=== PATIENT | female | born 1995 | race Caucasian/White ===

== ENCOUNTER 2019-05-20 13:50 | Outpatient (CLI) | payer SELFPAY ==
[2019-05-20 14:58] LABS: Bacteria,Urine 4+ /HPF (Negative); Bilirubin,Urine NEG (Negative); Blood,Urine SM (Negative); Color,Urine Straw (Yellow); Protein,Urine <15 mg/dL mg/dL (Negative); Urobilinogen,Urine < 2.0 mg/dL (<2.0)
[2019-05-20 14:59] LABS: Hematocrit 40.8 % (30.3-42.9); Mean Corpuscular HGB Conc 34 % (30-34); Mean Corpuscular Volume 82 fl (79-97); Platelet Count 227 K/mm3 (140-440); Red Cell Distribution Width 16.4 % (13.2-15.2)
[2019-05-20 15:16] LABS: Alanine Aminotransferase 16 units/L (7-56); Uric Acid 6.1 mg/dL (3.5-7.6)
[2019-05-20 16:15] VITALS: BP 105/64
== END 2019-05-20 16:32 | disposition home or self-care (01) ==
LOC: TRG 13:50
PROVIDERS: ATTEND Obstetrics & Gynecology
DX: O47.1 False labor at or after 37 completed weeks of gestation (principal); Z3A.40 40 weeks gestation of pregnancy
CPT/HCPCS: 36415; 59025; 81001; 82565; 83615; 84450; 84460; 84550; 85027; 87086

== ENCOUNTER 2019-05-26 12:08 | Inpatient (IN) | payer MEDICAID, OTHER ==
[2019-05-26] MEDS ORDERED: TERBUTALINE 1 MG/1 ML INJ IVP PRN (13:32)
[2019-05-26] MEDS ORDERED: LIDOCAINE (2%) 20 MG/1 ML VIAL 20 ML MDV INFILTRATI ONE (13:32)
[2019-05-26] MEDS ORDERED: miSOPROStol 25 MCG TAB VG ONE (13:32)
[2019-05-26] MEDS ORDERED: TERBUTALINE 1 MG/1 ML INJ SUB-Q PRN (13:32)
[2019-05-26] MEDS ORDERED: MINERAL OIL 30 ML ORAL LIQD PO PRN (13:32)
[2019-05-26] MEDS ORDERED: ePHEDrine SULFATE 50 MG/1 ML INJ IV PRN (13:32)
[2019-05-26] MEDS ORDERED: NALOXONE 0.4 MG/1 ML INJ IV PRN (13:32)
[2019-05-26] MEDS ORDERED: BUTORPHANOL 2 MG/1 ML INJ IV PRN (13:32)
--- NOTE | 2019-05-26 13:46 | History and Physical Report ---
History of Present Illness Date of examination: 05/26/19 Date of admission: 05/26/2019 Chief complaint: Patient sent from office with elevated blood pressures (156/106; 170/90). Patient denies HAs, visual changes, and N&V. Admits to pedal edema. History of present illness: Early entry to care at [facility], course complicated by a abnormal 1hour GTT followed by a normal 3hour GTT. The Third trimester has been complicated by elevated blood pressures. Past History Past Medical History: no pertinent history Past Surgical History: no surgical history Family/Genetic History: diabetes (father and mother), hypertension (father), cancer (Aunt: Breast and Uterine) Social history: no significant social history, - Obstetrical History Expected Date of Delivery: 05/16/19 Actual Gestation: 41 Week(s) 3 Day(s) : 1 Medications and Allergies Allergies Allergy/AdvReac Type Severity Reaction Status Date / Time No Known Allergies Allergy Verified 05/20/19 14:19 Active Meds: Active Medications Butorphanol Tartrate (Stadol) 2 mg IV Q2H PRN PRN Reason: Pain , Severe (7-10) Ephedrine Sulfate (Ephedrine Sulfate) 10 mg IV Q2M PRN PRN Reason: Hypotension Oxytocin/Sodium Chloride (Pitocin/Ns 20 Unit/1000ml Drip) 20 units in 1,000 mls @ 125 mls/hr IV DIRECT ANDRESSA Lactated Ringer's (Lactated Ringers) 1,000 mls @ 125 mls/hr IV DIRECT ANDRESSA Lidocaine (Xylocaine 2%) 20 ml INFILTRATI ONCE ONE Stop: 05/26/19 13:33 Mineral Oil (Mineral Oil) 30 ml PO QHS PRN PRN Reason: Constipation Misoprostol (Cytotec) 25 mcg VAGINAL ONCE ONE Stop: 05/26/19 13:33 Naloxone HCl (Naloxone) 0.1 mg IV Q2MIN PRN PRN Reason: Res Rate </= 8 or 02 SAT < 92% Ondansetron HCl (Zofran) 4 mg IV Q8H PRN PRN Reason: Nausea And Vomiting Terbutaline Sulfate (Brethine) 0.25 mg SUB-Q ONCE PRN PRN Reason: Hyperstimulation/Hypertonicity Terbutaline Sulfate (Brethine) 0.25 mg IVP ONCE PRN PRN Reason: Hyperstimulation/Hypertonicity Review of Systems All systems: negative - Vital Signs Vital signs: Vital Signs Pulse Pulse Ox 105 H 98 05/26/19 12:26 05/26/19 12:26 Temp Pulse Resp BP Pulse Ox 94 H 151/95 96 05/26/19 13:36 05/26/19 13:32 05/26/19 13:36 - Physical Exam Breasts: Positive: normal Cardiovascular: Regular rate Lungs: Positive: Clear to auscultation, Normal air movement Abdomen: Positive: normal appearance, soft, normal bowel sounds Genitourinary (Female): Positive: normal external genitalia, normal perenium Uterus: Positive: enlarged Extremities: Positive: edema (+1) - Obstetrical FHR: category 1 Uterine Contraction Monitor Mode: External Cervical Dilatation: 3 (Vtx, Intact) Cervical Effacement Percentage: 40 station: -3 Uterine Contraction Pattern: Absent Uterine Tone Measurement Phase: Resting Results All other labs normal. Assessment and Plan A: IUP @ 41 3/7 Weeks Category I Tracing Elevated Blood Pressure Maternal Obesity GBS Negative P: Admit to L&D per Routine Orders Cytotec Induction PIH Labs
[2019-05-26] MEDS ORDERED: OXYTOCIN 20 UNIT/1000ML DRIP 20 UNITS/1,000 ML BAG IV SCH (14:00)
[2019-05-26 14:36] LABS: Hematocrit 39.9 % (30.3-42.9); Hemoglobin 13.4 gm/dl (10.1-14.3); Mean Corpuscular HGB Conc 34 % (30-34); Mean Corpuscular Volume 82 fl (79-97); Platelet Count 216 K/mm3 (140-440); Red Blood Count 4.84 M/mm3 (3.65-5.03); Red Cell Distribution Width 16.1 % (13.2-15.2)
[2019-05-26 15:05] LABS: Alanine Aminotransferase 13 units/L (7-56); Uric Acid 6.5 mg/dL (3.5-7.6)
[2019-05-26] MEDS ORDERED: FLU VACC QUAD 2019-20 (3 YR UP)/PF 60 MCG/0.5 ML SYRINGE IM ONE (15:38)
[2019-05-26] MEDS ORDERED: OXYTOCIN DRIP 30,000 MILLIUNITS/500 ML BAG IV ONE (15:45)
[2019-05-26] MEDS: LACTATED RINGERS 1,000 ML IV SCH ×3 (16:00→22:10)
--- NOTE | 2019-05-26 16:03 | Progress Note ---
Assessment and Plan A: IUP @ 41 3/7 Weeks Category I Tracing Maternal Obesity GBS Negative P: AROM Internals X 2 Pitocin Induction Subjective - Subjective Date of service: 05/26/19 Interval history: Early entry to care at [facility], course complicated by a abnormal 1hour GTT followed by a normal 3hour GTT. The Third trimester has been complicated by elevated blood pressures. Patient reports: movement normal Objective - Vital Signs Vital Signs: Vital Signs - 12hr 05/26/19 05/26/19 05/26/19 12:26 12:31 12:36 Temperature 98.8 F Pulse Rate 105 H 104 H 105 H Blood Pressure 138/86 O2 Sat by Pulse 98 97 98 Oximetry 05/26/19 05/26/19 05/26/19 12:41 12:46 12:51 Temperature Pulse Rate 106 H 103 H 98 H Blood Pressure 138/85 O2 Sat by Pulse 98 96 98 Oximetry 05/26/19 05/26/19 05/26/19 12:56 13:01 13:06 Temperature Pulse Rate 98 H 104 H 96 H Blood Pressure 119/68 O2 Sat by Pulse 98 98 97 Oximetry 05/26/19 05/26/19 05/26/19 13:11 13:16 13:21 Temperature Pulse Rate 87 96 H 92 H Blood Pressure 126/76 O2 Sat by Pulse 97 98 97 Oximetry 05/26/19 05/26/19 05/26/19 13:26 13:31 13:32 Temperature Pulse Rate 100 H 93 H 101 H Blood Pressure 151/95 O2 Sat by Pulse 97 97 Oximetry 05/26/19 05/26/19 05/26/19 13:36 13:41 13:46 Temperature Pulse Rate 94 H 91 H 96 H Blood Pressure O2 Sat by Pulse 96 96 97 Oximetry 05/26/19 05/26/19 05/26/19 13:47 13:51 13:56 Temperature Pulse Rate 95 H 91 H 87 Blood Pressure 136/81 O2 Sat by Pulse 94 97 98 Oximetry 05/26/19 05/26/19 05/26/19 14:01 14:02 14:06 Temperature Pulse Rate 91 H 88 94 H Blood Pressure 134/87 O2 Sat by Pulse 97 96 Oximetry 05/26/19 05/26/19 05/26/19 14:11 14:16 14:21 Temperature Pulse Rate 92 H 87 91 H Blood Pressure 117/65 O2 Sat by Pulse 97 97 97 Oximetry 05/26/19 05/26/19 05/26/19 14:26 14:31 14:36 Temperature Pulse Rate 85 95 H 96 H Blood Pressure O2 Sat by Pulse 98 97 97 Oximetry 05/26/19 05/26/19 05/26/19 14:41 14:47 14:50 Temperature Pulse Rate 92 H 93 H 93 H Blood Pressure 123/67 O2 Sat by Pulse 92 95 Oximetry 05/26/19 05/26/19 05/26/19 14:55 15:00 15:05 Temperature Pulse Rate 89 87 87 Blood Pressure O2 Sat by Pulse 98 98 98 Oximetry 05/26/19 05/26/19 05/26/19 15:10 15:15 15:18 Temperature Pulse Rate 88 88 87 Blood Pressure 117/67 O2 Sat by Pulse 97 97 Oximetry 05/26/19 05/26/19 05/26/19 15:20 15:25 15:30 Temperature Pulse Rate 95 H 95 H 96 H Blood Pressure O2 Sat by Pulse 97 96 97 Oximetry 05/26/19 05/26/19 05/26/19 15:35 15:39 15:40 Temperature 97.9 F Pulse Rate 92 H 90 Blood Pressure O2 Sat by Pulse 98 97 Oximetry 05/26/19 05/26/19 05/26/19 15:45 15:47 15:50 Temperature Pulse Rate 89 94 H 86 Blood Pressure 139/86 O2 Sat by Pulse 97 94 98 Oximetry - Exam Breasts: normal Cardiovascular: Regular rate Lungs: Clear to auscultation, Normal air movement Abdomen: Present: normal appearance, soft, normal bowel sounds FHR: category 1 FHR comments: Spontaneous decelerations noted earlier; have resolved. Uterine Contraction Monitor Mode: Internal Cervical Dilatation: 3 (No fluid return upon AROM @ 1600) Cervical Effacement Percentage: 70 station: -2 Uterine Contraction Pattern: Irregular Uterine Tone Measurement Phase: Resting Uterine Contraction Intensity: Mild Extremities: normal - Labs Labs: Abnormal Labs 05/26/19 05/26/19 13:59 13:59 RDW 16.1 H Creatinine 0.5 L Lactate Dehydrogenase 221 H Laboratory Results - last 24 hr 05/26/19 05/26/19 05/26/19 13:59 13:59 13:59 WBC 7.7 RBC 4.84 Hgb 13.4 Hct 39.9 MCV 82 MCH 28 MCHC 34 RDW 16.1 H Plt Count 216 Creatinine 0.5 L Estimated GFR > 60 Uric Acid 6.5 AST 22 ALT 13 Lactate Dehydrogenase 221 H Blood Type O POSITIVE Antibody Screen Negative
[2019-05-26] MEDS ORDERED: OXYTOCIN DRIP 30 UNITS/500 ML BAG IV SCH (17:00)
[2019-05-26] MEDS: ONDANSETRON 4 MG/2 ML INJ IV PRN (20:34)
[2019-05-26] MEDS: SODIUM CHLORIDE 0.9% 1000 ML 1,000 ML VG SCH (22:42)
--- NOTE | 2019-05-27 | Event Note ---
Date: 05/26/19 Called to see pt to assess FHT. RN was concerned due to a isolated late decel the pt had earlier while on pit. Pit has been stopped for > 2 hrs now. Occasional early decels noted. Currently, FHT is 120s, reactive with good BTBV and no significant decels. Pt is also still manoj every 2 minutes without pitocin. RN exam also is noting cervical change as she is now 6 cm. Pt also has FSE and had amnioinfusion Plan- FHT is currently reassuring and pt has changed cervix and is still manoj. As a result, will continue expectant care. As long as pt is still having regular contractions, will not add pitocin.
[2019-05-27] MEDS: SODIUM CHLORIDE 0.9% 1000 ML 1,000 ML VG SCH (02:21)
[2019-05-27] MEDS: LACTATED RINGERS 1,000 ML IV SCH ×2 (02:22→11:24)
[2019-05-27] MEDS ORDERED: fentaNYL 100 MCG/2 ML INJ IV PRN (02:36)
[2019-05-27] MEDS: ONDANSETRON 4 MG/2 ML INJ IV PRN (06:38)
[2019-05-27] MEDS ORDERED: NALOXONE 2 MG/2 ML INJ IV PRN (06:50)
[2019-05-27] MEDS ORDERED: ePHEDrine SULFATE 50 MG/1 ML INJ IV PRN (06:50)
--- NOTE | 2019-05-27 06:50 | Anesthesia Consultation ---
Anesthesia Consult and Med Hx Date of service: 05/27/19 - Airway Anesthetic Teeth Evaluation: Good ROM Head & Neck: Adequate Mental/Hyoid Distance: Adequate Mallampati Class: Class II Intubation Access Assessment: Good - Pulmonary Exam CTA: Yes - Cardiac Exam Cardiac Exam: RRR - Pre-Operative Health Status ASA Pre-Surgery Classification: ASA2, Emergency Proposed Anesthetic Plan: Epidural - Pulmonary Hx Asthma: No - Cardiovascular System Hx Hypertension: Yes - Central Nervous System Hx Seizures: No Hx Psychiatric Problems: No - Endocrine Hx Renal Disease: No Hx Hypothyroidism: No Hx Hyperthyroidism: No - Hematic Hx Anemia: No Hx Sickle Cell Disease: No - Other Systems Hx Alcohol Use: No Hx Obesity: Yes
[2019-05-27] MEDS ORDERED: fentaNYL-BUPIV 2 MCG/ML-0.125% 200 MCG/100 ML BAG EPIDURAL SCH ×2 (07:00→11:00)
--- NOTE | 2019-05-27 07:09 | Event Note ---
Date: 05/27/19 PT is getting very uncomfortable with the pain and is awaiting epidural. FHT- 150s, reactive, good BTBV. PT was having repetitve early decels which has recently resolved. [place]- around q 2-3 min, there are some 10 min stretches where MVUs are adequate, occasionally they are not. VE- 7cm (maybe stetchy to 8), 80%/-1. A/P- cervical dilation is progressing, although slowly. Will await epidural and sees if controlling her pain will improve her dilation. Contractions are still regular and mostly adequate at this time so continue to hold on pit.
[2019-05-27] MEDS ORDERED: BUPIVACAINE/PF (0.25%) 2.5 MG/ML 10 ML VIAL INFILTRATI ONE (07:34)
[2019-05-27] MEDS ORDERED: ceFAZolin/Water 2 GM/20 ML 2 GM/20 ML SYRINGE IV NR (09:00)
[2019-05-27] MEDS ORDERED: FAMOTIDINE 20 MG/2 ML INJ IV NR (09:00)
[2019-05-27] MEDS ORDERED: BICITRA ORAL LIQD 30ML PO NR (09:00)
[2019-05-27] MEDS ORDERED: OXYTOCIN 20 UNIT/1000ML DRIP 20 UNITS/1,000 ML BAG IV SCH ×2 (09:00→11:00)
[2019-05-27] MEDS ORDERED: METOCLOPRAMIDE 10 MG/2 ML INJ IV NR (09:00)
[2019-05-27] MEDS ORDERED: LACTATED RINGERS 1,000 ML IV SCH ×2 (09:00→17:29)
[2019-05-27] MEDS ORDERED: WATER FOR IRRIG STERILE 1,500 ML BOTTLE IR ONE (09:16)
[2019-05-27] MEDS ORDERED: SODIUM CHLORIDE 0.9% IRR 1,500 ML BOTTLE IR ONE (09:16)
[2019-05-27] MEDS ORDERED: LIDOCAINE (2%) 20 MG/1 ML VIAL 20 ML MDV INFILTRATI ONE (09:17)
[2019-05-27] MEDS ORDERED: LIDOCAINE 2%/EPINEPHRINE 1:200,000 VIAL (20 ML) INFILTRATI ONE (09:18)
--- NOTE | 2019-05-27 09:23 | Event Note ---
Date: 05/27/19 Decelerations are continuing, Variability is excellent but time to vaginal delivery uncertain. Options posed to patient and she chose a delivery. Plan: for delivery.
[2019-05-27] MEDS ORDERED: ONDANSETRON 4 MG/2 ML INJ ONE ×2 (10:04→10:37)
[2019-05-27] MEDS ORDERED: PHENYLEPHRINE/NS 1,000 MCG/10 ML SYRINGE (OR USE) IV ONE ×2 (10:10→10:37)
[2019-05-27] MEDS ORDERED: HYDROmorphone 1 MG/1 ML INJ IV PRN ×2 (10:22)
[2019-05-27] MEDS ORDERED: NALOXONE 0.4 MG/1 ML INJ IV PRN ×2 (10:22→10:44)
[2019-05-27] MEDS ORDERED: ONDANSETRON 4 MG/2 ML INJ IV PRN ×2 (10:22→10:44)
[2019-05-27] MEDS ORDERED: PROMETHAZINE 25 MG RECT SUPP PR PRN (10:22)
[2019-05-27] MEDS ORDERED: PROMETHAZINE 25 MG TAB PO PRN (10:22)
--- NOTE | 2019-05-27 10:22 | Anesthesia Day of Surgery ---
Anesthesia Day of Surgery - Day of Surgery Patient Examined: Yes Patient H&P Reviewed: Yes Patient is NPO: Yes
[2019-05-27] MEDS ORDERED: KETOROLAC 30 MG/1 ML INJ ONE (10:37)
[2019-05-27] MEDS ORDERED: DEXMEDETOMIDINE 200 MCG/2 ML VIAL IV ONE (10:37)
[2019-05-27] MEDS ORDERED: diphenhydrAMINE 50 MG/ML VIAL ONE (10:37)
[2019-05-27] MEDS ORDERED: ACETAMINOPHEN 325 MG TAB PO PRN (10:44)
[2019-05-27] MEDS ORDERED: LANOLIN/ZINC/DIMETHICONE (LANSINOH) 7 GM TP PRN (10:44)
[2019-05-27] MEDS ORDERED: WITCH HAZEL/ GLYCERIN PAD TP PRN (10:44)
--- NOTE | 2019-05-27 10:53 | Operative Report ---
Operative Report Operative Report: Date of surgery: 05/27/2019 Preoperative diagnoses: None reassuring heart tracing, intolerance of labor. Postoperative diagnoses: The same. Operation: Lower segment transverse delivery Surgeon:Paul Powers MD Human Resource Assistant: Kacey Brown CRNA Anesthesia: Spinal block Estimated blood loss: 900 mL Complications: None Findings: There was a live baby boy in occiput posterior position with a loose nuchal cord. The amniotic fluid was thick a live brain meconium stained. Both ovaries and fallopian tubes were grossly normal. There were 4 small some serosal fibroids over the fundus and posterior aspect of the uterus. Procedure in detail: The patient was taken to the operating room and given a spinal block. Patient was placed in the straight supine position and a Townesnd catheter was inserted. The patient was prepped in the abdomen. The drapes were placed. A timeout was done. With the go ahead from the lime vat tender, a Pfannenstiel incision was made. This incision was carried across the subcutaneous layer to the fascia which was also divided transversely. The recti abdominis muscle flaps were stripped from the fascia using a combination of blunt and sharp dissections. The muscles were in the midline to gain access to the anterior parietal peritoneum which was divided after excluding any underlying viscera. The access to the peritoneal cavity was then widened by manual stretching. The bladder blade was applied. The utero vesicle peritoneal flap was divided transversely allowing the bladder to be displaced caudally. The uterine incision was placed in the lower segment transversely. The uterine incision was carried to the decidual layer. The uterine incision was extended on both sides using the bandage scissors. The amniotic sac was ruptured with clear fluid. The head was lifted out of the false maternal pelvis and delivered through the incision using fundal pressure. The airways were bulb suctioned beginning with the mouth. Continuing fundal pressure combined with traction on the mandibular processes of the jaw delivered the rest of the baby. The umbilical cord was double clamped and divided. The baby was carefully transferred to the pediatric team. The placenta was manually removed from the uterine cavity. The uterine cavity was explored and was empty of any placental remnants. The uterine incision was repaired in 2 layers with #1 Vicryl. The surgical line on the uterus was hemostatic. Blood and clots were cleared from the peritoneal cavity. The anterior parietal peritoneum was repaired with #1 Vicryl. The fascia was repaired with #1 Vicryl. The subcutaneous layer was made hemostatic using the Bovie before the skin was closed subcuticularly with 4-0 Vicryl. There were no complications. The estimated blood loss was 900 mL. All sponges and instrument counts were correct. Patient was safely transferred to the recovery room.
--- NOTE | 2019-05-27 12:02 | Post Anesthesia Evaluation ---
- Post Anesthesia Evaluation Patient Participated: Yes Airway Patent: Yes Stable Respiratory Function: Yes Nausea/Vomiting: No Temp > 96.8F: Yes Pain Manageable: Yes Adequeate Hydration: Yes Anesthesia Complications: No Block Receding Appropriately: Yes Patient on Ventilator: No
[2019-05-27] MEDS: MORPHINE 4 MG/1 ML INJ IV PRN ×2 (14:15→20:33)
[2019-05-27] MEDS: ceFAZolin/NS 1 GM/50 ML 1 GM/50 ML BAG IV SCH (16:33)
[2019-05-27] MEDS: KETOROLAC 30 MG/1 ML INJ IV PRN ×2 (16:36→22:50)
[2019-05-27] MEDS ORDERED: LACTATED RINGERS 1,000 ML ONE (17:34)
[2019-05-27 23:22] LABS: Hematocrit 35.8 % (30.3-42.9); Hemoglobin 11.8 gm/dl (10.1-14.3)
[2019-05-28] MEDS: MORPHINE 4 MG/1 ML INJ IV PRN ×2 (01:42→08:20)
[2019-05-28] MEDS: ceFAZolin/NS 1 GM/50 ML 1 GM/50 ML BAG IV SCH (01:56)
[2019-05-28] MEDS: HYDROcodone/ACETAMINOPHEN 5-325 MG TAB PO PRN ×3 (04:29→21:03)
[2019-05-28] MEDS: FERROUS SULFATE 325 MG TAB PO SCH (08:55)
[2019-05-28] MEDS: PRENATAL VIT27-FE FUMARATE-FOLIC ACID VIT TAB PO SCH (08:55)
--- NOTE | 2019-05-28 11:46 | Progress Note ---
Assessment and Plan A: POD#1 s/p Primary c/s Poor pain control Gas pain Bottlefeeding VSS P: Routine PP/PO orders Increase pain med to 1-2 tablets q 4-6 hrs Encouraged ambulation, no carbonation, no straws Abd binder Anticipate discharge 24-48 hrs. Subjective - Subjective Date of service: 05/28/19 Principal diagnosis: POD#1 s/p Primary c/s Interval history: See H&P and operative note Patient reports: appetite normal, voiding normally, pain well controlled, flatus, pain poorly controlled, ambulating normally, other (gas pain) : doing well Objective - Vital Signs Latest vital signs: Vital Signs Temp Pulse Resp BP BP Pulse Ox 05/28/19 10:33 98.5 F 129 H 20 150/89 05/28/19 02:00 98.2 F 05/28/19 00:51 98.4 F 105 H 18 141/86 95 05/27/19 22:05 97.9 F 05/27/19 19:15 100.4 F H 138 H 18 124/61 05/27/19 16:36 20 05/27/19 14:15 20 05/27/19 13:04 98.6 F 103 H 20 134/79 100 05/27/19 11:56 97.7 F 95 H 16 1353/79 98 Intake and Output 05/27/19 05/28/19 05/28/19 23:59 07:59 15:59 Intake Total 50 240 120 Output Total 150 Balance -100 240 120 Intake: IV 50 ANCEF/NS 1 GM/50 ML 1 gm 50 In 50 ml @ 100 mls/hr IV Q8H [facility] Rx#:[id number] Oral 240 120 Output: Urine 150 Indwelling Catheter 150 Other: Total, Intake Amount 120 120 Total, Output Amount 150 # Voids Void 1 1 - Exam Breasts: Present: normal Cardiovascular: Present: Regular rate, Normal S1, Normal S2, No murmurs Lungs: Present: Clear to auscultation, Normal air movement Abdomen: Present: normal appearance, soft, tenderness (as expected post-op), normal bowel sounds. Absent: distention Vulva: both: normal Uterus: Present: firm, fundal height at umbilicus Extremities: Present: normal Deep Tendon Reflex Grade: Normal +2 Incision: Present: normal, dry, intact, dressed (Pressure dressing CDI)
[2019-05-28] MEDS ORDERED: SIMETHICONE 80 MG CHEW TAB PO PRN (11:48)
[2019-05-28] MEDS: IBUPROFEN 800 MG TAB PO PRN (15:38)
[2019-05-28] MEDS: SIMETHICONE 80 MG CHEW TAB PO PRN (18:16)
[2019-05-29] MEDS: IBUPROFEN 800 MG TAB PO PRN ×3 (02:01→22:11)
[2019-05-29] MEDS: SIMETHICONE 80 MG CHEW TAB PO PRN ×2 (08:37→22:12)
[2019-05-29] MEDS: HYDROcodone/ACETAMINOPHEN 5-325 MG TAB PO PRN ×2 (08:38→18:00)
[2019-05-29] MEDS: PRENATAL VIT27-FE FUMARATE-FOLIC ACID VIT TAB PO SCH (08:39)
[2019-05-29] MEDS: FERROUS SULFATE 325 MG TAB PO SCH (08:39)
--- NOTE | 2019-05-29 12:25 | Progress Note ---
Assessment and Plan A: /postop day 2 S/P primary low transverse section. PIH. P: Repeat Preeclamptic labs. Recheck blood pressure (at rest). Subjective - Subjective Date of service: 05/29/19 Principal diagnosis: POD#1 s/p Primary c/s Interval history: /postop day 2 S/P primary low transverse section. Patient reports small amount of lochia. Patient is voiding without difficulty, ambulating well, passing gas, tolerating a regular diet without nausea or vomiting. Patient denies headache, visual disturbance, chest pain, shortness of breath, leg pain, heavy bleeding, or abdominal pain. Patient reports: appetite normal, voiding normally, pain well controlled, flatus, ambulating normally, no dizzy ambulation, no nauseated : doing well, in NICU Objective - Vital Signs Latest vital signs: Vital Signs Temp Pulse Resp BP 05/29/19 08:30 97.7 F 96 H 18 140/94 05/29/19 00:00 98.7 F 77 18 102/78 05/28/19 16:37 98.3 F 110 H 18 128/86 Intake and Output 05/28/19 05/29/19 05/29/19 23:59 07:59 15:59 Intake Total 480 200 480 Balance 480 200 480 Intake: Oral 480 200 480 Other: Total, Intake Amount 480 200 480 # Voids Void 1 1 - Exam Cardiovascular: Present: Regular rate, Normal S1, Normal S2, No murmurs Lungs: Present: Clear to auscultation Abdomen: Present: normal appearance, soft, normal bowel sounds. Absent: distention, tenderness, guarding, rigidity Uterus: Present: normal, firm, fundal height below umbilicus. Absent: bogginess, tenderness Extremities: Present: normal, tenderness, edema (edema of ankles and feet bilaterally) Incision: Present: normal, dry, intact
[2019-05-29 15:10] LABS: Hematocrit 32.4 % (30.3-42.9); Hemoglobin 10.8 gm/dl (10.1-14.3); Mean Corpuscular HGB Conc 33 % (30-34); Mean Corpuscular Volume 83 fl (79-97); Platelet Count 172 K/mm3 (140-440); Red Blood Count 3.89 M/mm3 (3.65-5.03); Red Cell Distribution Width 16.8 % (13.2-15.2)
[2019-05-29 15:23] LABS: Alanine Aminotransferase 10 units/L (7-56); Albumin 2.6 g/dL (3.9-5); BUN/Creatinine Ratio 16; Blood Urea Nitrogen 11 mg/dL (7-17); Calcium 8.2 mg/dL (8.4-10.2); Hemolysis Index 17; Uric Acid 6.7 mg/dL (3.5-7.6)
[2019-05-29 15:30] LABS: Bilirubin,Urine NEG (Negative); Blood,Urine LG (Negative); Color,Urine Red (Yellow); Mucus,Urine FEW /HPF; Urobilinogen,Urine < 2.0 mg/dL (<2.0)
[2019-05-29 15:33] LABS: RBC,Urine > 182.0 /HPF (0.0-6.0); WBC,Urine > 182.0 /HPF (0.0-6.0)
--- NOTE | 2019-05-29 16:20 | Event Note ---
Date: 05/29/19 Urinalysis shows 182 WBC/hpf. Urine C&S sent. Pt. complains of lower back pain. Rocephin ordered. Discussed this with patient and patient's nurse.
[2019-05-29] MEDS: cefTRIAXone/NS 1 GM/50 ML 1 GM/50 ML BAG IV SCH (18:32)
[2019-05-29] MEDS: DOCUSATE SODIUM 100 MG CAP PO SCH (22:07)
[2019-05-30] MEDS: HYDROcodone/ACETAMINOPHEN 5-325 MG TAB PO PRN ×3 (04:57→18:25)
[2019-05-30] MEDS: FERROUS SULFATE 325 MG TAB PO SCH (10:26)
[2019-05-30] MEDS: PRENATAL VIT27-FE FUMARATE-FOLIC ACID VIT TAB PO SCH (10:26)
[2019-05-30] MEDS: DOCUSATE SODIUM 100 MG CAP PO SCH ×2 (10:26→21:22)
[2019-05-30] MEDS: MAGNESIUM HYDROXIDE (MOM) ORAL LIQD UDC PO PRN (10:28)
[2019-05-30] MEDS: SIMETHICONE 80 MG CHEW TAB PO PRN ×2 (10:28→21:22)
[2019-05-30] MEDS: IBUPROFEN 800 MG TAB PO PRN ×2 (12:19→21:22)
--- NOTE | 2019-05-30 14:52 | Progress Note ---
Assessment and Plan A: /postop day 3 S/P low transverse section. PIH. Elevated blood pressures. P: Labetalol 100 mg po BID started. Monitor BPs. Anticipate discharge tomorrow if BPs normalize. Subjective - Subjective Date of service: 05/30/19 Principal diagnosis: POD#3 s/p Primary c/s Interval history: /postop day 3 S/P primary low transverse section. BPs have increased slightly today. Labetalol po has been ordered to control BP. Patient reports small amount of lochia. Patient is voiding without difficulty, ambulating well, passing gas, tolerating a regular diet without nausea or vomiting. Patient denies headache, visual disturbance, chest pain, shortness of breath, leg pain, heavy bleeding, or abdominal pain. Patient reports: appetite normal, voiding normally, pain well controlled, flatus, ambulating normally, no dizzy ambulation, no nauseated [place]: doing well Objective - Vital Signs Latest vital signs: Vital Signs Temp Pulse Resp BP BP Pulse Ox 05/30/19 12:26 97.6 F 99 H 22 150/91 98 05/30/19 09:03 98.1 F 101 H 18 137/97 99 05/30/19 04:57 18 05/30/19 02:04 98.4 F 95 H 18 134/84 97 05/29/19 22:06 132/87 05/29/19 18:22 98.5 F 103 H 18 124/87 Intake and Output 05/29/19 05/30/19 05/30/19 23:59 07:59 15:59 Intake Total 840 480 Balance 840 480 Intake: Oral 480 Intake, Free Water 360 480 Other: Total, Intake Amount 480 # Voids Void 2 3 - Exam Cardiovascular: Present: Regular rate, Normal S1, Normal S2 Lungs: Present: Clear to auscultation Abdomen: Present: normal appearance, soft, normal bowel sounds. Absent: distention, tenderness, guarding, rigidity Uterus: Present: normal, firm, fundal height below umbilicus. Absent: bogginess, tenderness Extremities: Present: normal, edema (bilateral pedal edema). Absent: tenderness Incision: Present: normal, dry, intact - Labs Labs: Abnormal lab results 05/29/19 05/29/19 05/29/19 Range/Units 14:40 14:40 15:00 WBC 12.1 H (4.5-11.0) K/mm3 RDW 16.8 H (13.2-15.2) % Carbon Dioxide 19 L (22-30) mmol/L Glucose 106 H (65-100) mg/dL Calcium 8.2 L (8.4-10.2) mg/dL Lactate Dehydrogenase 271 H (91-180) units/L Total Protein 6.0 L (6.3-8.2) g/dL Albumin 2.6 L (3.9-5) g/dL Urine WBC (Auto) > 182.0 H (0.0-6.0) /HPF U Epithel Cells (Auto) 30.0 H (0-13.0) /HPF
[2019-05-30] MEDS: cefTRIAXone/NS 1 GM/50 ML 1 GM/50 ML BAG IV SCH (16:23)
[2019-05-31] MEDS: HYDROcodone/ACETAMINOPHEN 5-325 MG TAB PO PRN ×2 (02:16→10:10)
[2019-05-31] MEDS: IBUPROFEN 800 MG TAB PO PRN ×3 (08:26→21:16)
[2019-05-31] MEDS: SIMETHICONE 80 MG CHEW TAB PO PRN (08:26)
[2019-05-31] MEDS: MAGNESIUM HYDROXIDE (MOM) ORAL LIQD UDC PO PRN (10:00)
[2019-05-31] MEDS: PRENATAL VIT27-FE FUMARATE-FOLIC ACID VIT TAB PO SCH (10:00)
[2019-05-31] MEDS: DOCUSATE SODIUM 100 MG CAP PO SCH ×2 (10:01→21:08)
[2019-05-31] MEDS: FERROUS SULFATE 325 MG TAB PO SCH (10:01)
--- NOTE | 2019-05-31 11:41 | Progress Note ---
Assessment and Plan - Patient Problems (1) S/P primary low transverse Current Visit: Yes Status: Acute Plan to address problem: POD 4 - unstable Continue routine postop orders Ambulation, abdominal binder encouraged, as tolerated Anticipate discharge in 24 hours (2) Uncontrolled pain Current Visit: Yes Status: Acute Plan to address problem: Pain concentrated at left incision site where serosanguinous drainage is noted [place] discontinued and percocet initiated Will consult Dr. Bell for bedside evaluation (3) Gestational hypertension Current Visit: Yes Status: Acute Qualifiers: Trimester: third trimester Qualified Code(s): O13.3 - Gestational [-induced] hypertension without significant proteinuria, third trimester Plan to address problem: BP today 141/85 - asymptomatic PIH labs done 05/29/19 wnl. Repeat PIH labs ordered On Labetalol 100mg PO BID. Increased to Labetalol 200mg PO BID (4) Morbid obesity with BMI of 45.0-49.9, adult Current Visit: Yes Status: Acute Subjective - Subjective Date of service: 05/31/19 Principal diagnosis: POD #4; s/p Primary LTCS; Uncontrolled Pain; Gestational HTN Interval history: see H&P, OB Progress Note, Event Notes, OP Report and PP/IRRIGATION MANAGER Progress Notes Patient reports: appetite normal, voiding normally, flatus, pain poorly controlled (on left incision site ), ambulating normally, other (bloody drainage from left incision site. Denies headache, visual disturbances or RUQ pain), no dizzy ambulation, no bowel movement : in NICU Objective - Vital Signs Latest vital signs: Vital Signs Temp Pulse Resp BP BP Pulse Ox 05/31/19 10:11 141/85 05/31/19 08:35 99.0 F 95 H 16 141/85 97 05/31/19 03:16 18 05/31/19 02:16 18 05/31/19 00:00 98.6 F 72 16 117/64 05/30/19 22:22 18 05/30/19 21:28 96 H 126/88 05/30/19 21:27 98.4 F 18 126/88 05/30/19 21:22 18 05/30/19 19:25 18 05/30/19 17:12 98.1 F 98 H 18 129/78 97 05/30/19 12:26 97.6 F 99 H 22 150/91 98 Intake and Output 05/30/19 05/31/19 05/31/19 23:59 07:59 15:59 Intake Total 1620 240 Balance 1620 240 Intake: Oral 600 240 Intake, Free Water 1020 Other: Total, Intake Amount 600 240 # Voids Void 1 1 1 - Exam Cardiovascular: Present: Regular rate Lungs: Present: Clear to auscultation Abdomen: Present: normal appearance, soft Vulva: both: normal Uterus: Present: normal, firm, fundal height below umbilicus Extremities: Present: normal Incision: Present: normal, dry, other (minimal serosanguinous drainage noted at left incision site. Incision site cleaned with normal saline and new steri strips applied) Comments: scant lochia
[2019-05-31 13:58] LABS: Hematocrit 31.2 % (30.3-42.9); Hemoglobin 10.4 gm/dl (10.1-14.3); Mean Corpuscular HGB Conc 33 % (30-34); Mean Corpuscular Volume 83 fl (79-97); Platelet Count 229 K/mm3 (140-440); Red Blood Count 3.75 M/mm3 (3.65-5.03); Red Cell Distribution Width 16.7 % (13.2-15.2)
[2019-05-31] MEDS: oxyCODONE /ACETAMINOPHEN 5-325MG TAB PO PRN ×2 (16:40→23:28)
[2019-06-01] MEDS: IBUPROFEN 800 MG TAB PO PRN ×2 (03:37→15:54)
[2019-06-01] MEDS: oxyCODONE /ACETAMINOPHEN 5-325MG TAB PO PRN ×2 (05:33→11:16)
[2019-06-01] MEDS: SIMETHICONE 80 MG CHEW TAB PO PRN (05:37)
[2019-06-01] MEDS: PRENATAL VIT27-FE FUMARATE-FOLIC ACID VIT TAB PO SCH (09:37)
[2019-06-01] MEDS: FERROUS SULFATE 325 MG TAB PO SCH (09:37)
[2019-06-01] MEDS: DOCUSATE SODIUM 100 MG CAP PO SCH (09:37)
--- NOTE | 2019-06-01 10:14 | Discharge Summary ---
Providers - Providers Date of Admission: 05/26/19 13:32 Date of discharge: 06/01/19 (1200) Attending physician: JAIRO RIVERA Primary care physician: JAIRO RIVERA Hospitalization Reason for admission: induction of labor (secondary to elevated B/Ps), IUP at term Delivery: Procedure: primary low transverse (secondary to non-reassuring heart tones) Incision: dry, intact, other (steri-stips in place, small amt of dried shadow drainage noted. No signs of infection noted) Other procedures: none complications: none Discharge diagnosis: other (S/P Primary C/S; Anemia) baby: male Hospital course: See admission H & P; OB operative note and PP progress notes Condition at discharge: Stable Disposition: DC-01 TO HOME OR SELFCARE - Discharge Diagnoses (1) S/P primary low transverse Status: Acute (2) Morbid obesity with BMI of 45.0-49.9, adult Status: Acute (3) Gestational hypertension Status: Acute Qualifiers: Trimester: third trimester Qualified Code(s): O13.3 - Gestational [-induced] hypertension without significant proteinuria, third trimester (4) Anemia Status: Acute Qualifiers: Anemia type: other cause Other causes of anemia: acute posthemorrhagic Qualified Code(s): D62 - Acute posthemorrhagic anemia Plan - Discharge Medications Prescriptions: Ferrous Sulfate [Feosol 325 MG tab] 325 mg PO QDAY #30 tablet labetaloL [Labetalol 100mg TAB] 200 mg PO BID 7 Days #14 tablet HYDROcodone/APAP 5-325 [[place] 5/325] 1 - 2 each PO Q4HR PRN #30 tablet PRN Reason: Pain - Provider Discharge Summary Activity: routine, no sex for 6 weeks, no heavy lifting 4 weeks, no strenuous exercise Diet: other (Iron rich diet) Instructions: routine Additional instructions: [] Smoking cessation referral if applicable(refer to patient education folder for contact #) [] Refer to [facility] Booklet Call your doctor immediately for: * Fever > 100.5 * Heavy vaginal bleeding ( >1 pad per hour) * Severe persistent headache * Shortness of breath * Reddened, hot, painful area to leg or breast * Drainage or odor from incision. * Keep incision clean and dry at all times and follow doctor's instructions regarding bathing/showering * Continue daily oral iron supplementation as directed * Return to hospital for any unrelieved headaches, visual changes or chest pain * group dynamics instructor pain medication prescription from office ([address]) after d/c - Follow up plan Follow up: JAIRO RIVERA MD [Primary Care Provider] - 7 Days
[2019-06-01] MEDS ORDERED: MEASLES, MUMPS & RUBELLA 12,500 UNIT/0.5 ML VACCINE SUB-Q ONE (10:52)
[2019-06-01] MEDS ORDERED: HYDROGEN PEROXIDE 118 ML SOLUTION ONE (15:04)
[2019-06-01] MEDS ORDERED: HYDROGEN PEROXIDE 118 ML SOLUTION TP ONE (15:22)
[2019-06-01 17:42] VITALS: BP 145/93
--- NOTE | 2019-06-01 17:48 | Event Note ---
Date: 06/01/19 Patient was seen on account of a bloody drainage from the left aspect of her Pfannenstiel incision. The patient was anxious but otherwise having any distress. Examination of her wound revealed no induration, hyperemia or tenderness. There was dark red blood flowing from the incision approximately [address] the left corner of the incision. There was no purulence in the discharge. The incision was healing by primary intention otherwise. All the Steri-Strips from surgery were removed. Her subcuticular suturing was holding fine. Plan: A 4 x 4 gauze soaked in hydrogen peroxide was placed into the wound greater to act as a drain had been bleeding the surrounding skin with hydrogen peroxide. The patient will go home with a drain on antibiotics and follow-up in the office within 2-3 days for continuing review.
== END 2019-06-01 18:41 | disposition home or self-care (01) | DRG 787 ==
LOC: TRG 12:08 → LD 12:08 → TRG 13:32 → OB 05-27 12:52
PROVIDERS: ADMIT Obstetrics & Gynecology; ATTEND Obstetrics & Gynecology
PROC: 3E033VJ Introduction of Other Hormone into Peripheral Vein, Percutaneous Approach (ICD-10-PCS; 2019-05-26)
PROC: 10907ZC Drainage of Amniotic Fluid, Therapeutic from Products of Conception, Via Natural or Artificial Opening (ICD-10-PCS; 2019-05-26)
PROC: 10H07YZ Insertion of Other Device into Products of Conception, Via Natural or Artificial Opening (ICD-10-PCS; 2019-05-26)
PROC: 10D00Z1 Extraction of Products of Conception, Low, Open Approach (ICD-10-PCS; principal; 2019-05-27)
PROC: 3E0234Z Introduction of Serum, Toxoid and Vaccine into Muscle, Percutaneous Approach (ICD-10-PCS; 2019-06-01)
DX: O13.4 Gestational [pregnancy-induced] hypertension without significant proteinuria, complicating childbirth (principal); D62 Acute posthemorrhagic anemia; O99.214 Obesity complicating childbirth; O90.81 Anemia of the puerperium; O76 Abnormality in fetal heart rate and rhythm complicating labor and delivery; O69.81X0 Labor and delivery complicated by cord around neck, without compression, not applicable or unspecified; O77.0 Labor and delivery complicated by meconium in amniotic fluid; E66.01 Morbid (severe) obesity due to excess calories; Z23 Encounter for immunization; Z37.0 Single live birth; Z3A.41 41 weeks gestation of pregnancy; Z83.3 Family history of diabetes mellitus; Z82.49 Family history of ischemic heart disease and other diseases of the circulatory system; Z80.3 Family history of malignant neoplasm of breast; Z80.8 Family history of malignant neoplasm of other organs or systems; Z79.899 Other long term (current) drug therapy
CPT/HCPCS: 36415; 80053; 81001; 82565; 83615; 84450; 84460; 84550; 85014; 85018; 85027; 86850; 86900; 86901; 87086; 88307; 90686; 90707; G0378; J0595; J0690; J0696; J1200; J1885; J2270; J2370; J2405; J2590; J2765; J3010; J3490; J7030; J7120